=== PATIENT | female | born 1945 | race Caucasian/White ===

== ENCOUNTER 2018-09-04 12:33 | Inpatient (IN) ==
[2018-09-04] MEDS ORDERED: ONDANSETRON 4 MG/2 ML VIAL IV STA (13:37)
[2018-09-04] MEDS ORDERED: HYDROmorphone 2 MG/1 ML VIAL IV STA (13:37)
[2018-09-04] MEDS ORDERED: FAMOTIDINE 20 MG TABLET PO PRN (15:18)
[2018-09-04] MEDS ORDERED: MAGNESIUM HYDROXIDE SUSP 30 ML UDCUP PO PRN (15:18)
[2018-09-04] MEDS ORDERED: MORPHINE 4 MG/1 ML VIAL IV PRN ×4 (15:18→16:35)
[2018-09-04] MEDS ORDERED: ONDANSETRON 4 MG/2 ML VIAL IV PRN ×2 (15:18→16:35)
[2018-09-04] MEDS ORDERED: cloNIDine 0.1 MG TABLET PO STA (15:31)
[2018-09-04 15:35] LABS: Basophils # 0.1 10*3/uL (0.0-0.2); Basophils % 1.1 % (0.0-0.8); Eosinophils # 0.8 10*3/uL (0.0-0.87); Eosinophils % 9.3 % (0.00-10.9); Hematocrit 47.1 VOL% (35.7-47.0); Hemoglobin 15.6 GM/DL (12.0-16.0); Immature Granulocytes % 0.6 %; Immature Granulocytes Absolute 0.05 #; Lymphocytes # 2.6 10*3/uL (1.4-4.0); Lymphocytes % 28.9 % (21.3-54.2); Mean Corpuscular HGB Conc 33.1 GM/DL (32-36); Mean Corpuscular Volume 85.8 FL (87-102); Monocytes % 9.2 % (1.7-12.7); Neutrophils % 50.9 % (38.7-73.9); Platelet Count 297 T/CUMM (130-400); Red Blood Count 5.49 MC/CUMM (3.8-5.5)
[2018-09-04] MEDS: cloNIDine 0.1 MG TABLET PO STA ×2 (15:37→15:47)
[2018-09-04 15:47] LABS: Albumin 3.9 G/DL (3.4-5.0); Bilirubin,Total 0.9 MG/DL (0.2-1.0); Calcium 9.3 MG/DL (8.5-10.1); Osmolality,Calculated 280.4 MOS/KG (273-304); Total Protein 7.2 G/DL (6.4-8.3)
[2018-09-04 17:31] LABS: Basophils # 0.1 10*3/uL (0.0-0.2); Basophils % 0.6 % (0.0-0.8); Eosinophils # 0.7 10*3/uL (0.0-0.87); Eosinophils % 6.3 % (0.00-10.9); Hematocrit 43.3 VOL% (35.7-47.0); Hemoglobin 14.5 GM/DL (12.0-16.0); Immature Granulocytes % 0.3 %; Immature Granulocytes Absolute 0.03 #; Lymphocytes # 2.4 10*3/uL (1.4-4.0); Lymphocytes % 21.8 % (21.3-54.2); Mean Corpuscular HGB Conc 33.5 GM/DL (32-36); Mean Corpuscular Volume 85.4 FL (87-102); Mean Platelet Volume 9.7 FL (9.6-12.0); Monocytes % 6.9 % (1.7-12.7); Neutrophils % 64.1 % (38.7-73.9); Platelet Count 284 T/CUMM (130-400); Red Blood Count 5.07 MC/CUMM (3.8-5.5); Red Cell Distribution Width 12.2 % (9.3-17.3); White Blood Count 11.1 T/CUMM (4-12)
[2018-09-04] MEDS: LACTATED RINGERS 1,000 ML IV SCH (18:09)
[2018-09-05] MEDS: TEMAZEPAM 15 MG CAPSULE PO PRN ×2 (02:01→23:31)
[2018-09-05] MEDS ORDERED: ceFAZolin 2,000 MG in PREMIX 1 EACH IV ONE (06:00)
[2018-09-05] MEDS ORDERED: fentaNYL 100 MCG/2 ML VIAL ONE (06:23)
[2018-09-05] MEDS ORDERED: LIDOCAINE 1% 5 ML VIAL ONE (06:23)
[2018-09-05] MEDS ORDERED: DEXAMETHASONE 4 MG/1 ML VIAL ONE (06:23)
[2018-09-05] MEDS ORDERED: MIDAZOLAM 2 MG/2 ML VIAL ONE (06:23)
[2018-09-05] MEDS ORDERED: ROPIVACAINE 0.5% 30 ML VIAL ONE (06:23)
[2018-09-05] MEDS ORDERED: EPINEPHrine 1 MG/ML VIAL ONE (06:24)
[2018-09-05 06:30] LABS: Calcium 8.2 MG/DL (8.5-10.1); Osmolality,Calculated 276.5 MOS/KG (273-304)
[2018-09-05] MEDS ORDERED: ceFAZolin 1,000 MG VIAL ONE (07:36)
[2018-09-05] MEDS ORDERED: PROPOFOL 200 MG/20 ML VIAL IV ONE (08:45)
[2018-09-05] MEDS ORDERED: GLYCOPYRROLATE 0.4 MG/2 ML VIAL ONE (08:45)
[2018-09-05] MEDS ORDERED: DESFLURANE 1 UNIT/15 MINUTE INH ONE (08:45)
[2018-09-05] MEDS ORDERED: PHENYLEPHRINE 10 MG/1 ML VIAL IV ONE (08:45)
[2018-09-05] MEDS ORDERED: ROCURONIUM 100 MG/10 ML VIAL IV ONE (08:46)
[2018-09-05] MEDS ORDERED: SUCCINYLCHOLINE 200 MG/10 ML VIAL ONE (08:46)
[2018-09-05] MEDS ORDERED: SODIUM CHLORIDE 0.9% 250 ML IV ONE (08:46)
[2018-09-05] MEDS ORDERED: NEOSTIGMINE 10 MG/10 ML VIAL ONE (08:46)
[2018-09-05] MEDS ORDERED: LACTATED RINGERS 1,000 ML IV ONE (08:46)
[2018-09-05] MEDS ORDERED: PHENYLEPHRINE 1 MG/10 ML SYRINGE IV ONE (08:46)
[2018-09-05] MEDS: LACTATED RINGERS 1,000 ML IV SCH (11:30)
[2018-09-05] MEDS: hydroCHLOROthiazide 12.5 MG CAPSULE PO SCH (12:04)
[2018-09-05] MEDS: ChlordiazePOXIDE/CLIDINIUM 5-2.5 MG CAPSULE PO SCH (12:04)
[2018-09-05] MEDS: ATORVASTATIN 40 MG TABLET PO SCH (12:05)
[2018-09-05] MEDS: FLUoxetine 20 MG CAPSULE PO SCH (12:05)
[2018-09-05] MEDS: PANTOPRAZOLE 40 MG TABLET PO SCH (12:05)
[2018-09-05] MEDS ORDERED: ceFAZolin 1,000 MG in SYRINGE 1 EACH IV ONE (14:00)
[2018-09-05] MEDS: buPROPion SR 150 MG TABLET PO SCH (14:56)
[2018-09-06 05:19] LABS: Basophils # 0.1 10*3/uL (0.0-0.2); Basophils % 0.4 % (0.0-0.8); Eosinophils # 0.1 10*3/uL (0.0-0.87); Eosinophils % 0.9 % (0.00-10.9); Hematocrit 39.7 VOL% (35.7-47.0); Immature Granulocytes % 0.7 %; Immature Granulocytes Absolute 0.09 #; Lymphocytes % 21.6 % (21.3-54.2); Mean Corpuscular HGB Conc 32.7 GM/DL (32-36); Mean Corpuscular Volume 87.3 FL (87-102); Mean Platelet Volume 9.5 FL (9.6-12.0); Monocytes % 6.7 % (1.7-12.7); Neutrophils % 69.7 % (38.7-73.9); Platelet Count 241 T/CUMM (130-400); Red Blood Count 4.55 MC/CUMM (3.8-5.5); White Blood Count 13.6 T/CUMM (4-12)
[2018-09-06] MEDS: LACTATED RINGERS 1,000 ML IV SCH (08:35)
[2018-09-06] MEDS: buPROPion SR 150 MG TABLET PO SCH (08:51)
[2018-09-06] MEDS: PANTOPRAZOLE 40 MG TABLET PO SCH (08:51)
[2018-09-06] MEDS: FLUoxetine 20 MG CAPSULE PO SCH (08:51)
[2018-09-06] MEDS: ChlordiazePOXIDE/CLIDINIUM 5-2.5 MG CAPSULE PO SCH (08:52)
[2018-09-06] MEDS: hydroCHLOROthiazide 12.5 MG CAPSULE PO SCH (08:52)
[2018-09-06] MEDS: ATORVASTATIN 40 MG TABLET PO SCH (08:52)
[2018-09-06 11:11] VITALS: BP 133/56
[2018-09-06] MEDS ORDERED: cloNIDine 0.1 MG TABLET PO SCH (21:00)
== END 2018-09-06 11:20 | disposition home or self-care (01) | DRG 512 ==
LOC: N.ED 12:33 → N.EDINP 14:28 → OBSVTOIN 14:28 → INTOOBSV 14:28 → N.EDINP 16:10 → N.3E 16:34
PROVIDERS: ADMIT Orthopaedic Surgery; ATTEND Orthopaedic Surgery